=== PATIENT | male | born 1930 | race Caucasian/White ===

== ENCOUNTER 2017-12-10 02:23 | Emergency (ER) | payer MEDICARE, OTHER ==
[~2017-12-10] VITALS: Ht 182.9 cm; Wt 109.1 kg
[2017-12-10] MEDS ORDERED: GABA-531 PO (02:36)
[2017-12-10] MEDS ORDERED: INSLAN SQ (02:36)
[2017-12-10] MEDS ORDERED: OXYC10 PO (02:36)
[2017-12-10] MEDS ORDERED: OXYC-38 PO (02:36)
[2017-12-10] MEDS ORDERED: ATOR20TA86 PO (02:36)
[2017-12-10] MEDS ORDERED: MIRT15 PO (02:36)
[2017-12-10 02:58] LABS: GLUCOSE,POINT OF CARE 297 MG/DL (70-110)
[2017-12-10] MEDS ORDERED: GABAPENTIN 300 MG CAPSULE PO ONE (03:15)
[2017-12-10] MEDS ORDERED: LORazepam 2 MG/ML VIAL IM ONE (03:15)
[2017-12-10 03:26] LABS: BASOPHILS % (AUTO) 0.6 % (0.0-2.0); EOSINOPHILS % (AUTO) 2.9 % (1.0-6.0); HEMATOCRIT 35.6 % (41-53); LYMPHOCYTES # (AUTO) 3.4 K/uL (1.0-4.8); LYMPHOCYTES % (AUTO) 35.6 % (22.0-44.0); MEAN CORPUSCULAR HEMOGLOBIN 31.5 pg (26.0-34.0); MEAN CORPUSCULAR HGB CONC 33.9 G/dL (31.0-37.0); MEAN CORPUSCULAR VOLUME 93 fL (80-100); MONOCYTES # (AUTO) 0.7 K/uL (0.1-1.0); MONOCYTES % (AUTO) 7.6 % (2.0-9.0); NEUTROPHILS # (AUTO) 5.1 K/uL (1.8-7.7); NEUTROPHILS % (AUTO) 53.3 % (40.0-70.0); PLATELET COUNT (AUTO) 317 K/uL (150-450); RED BLOOD CELL COUNT(AUTO) 3.82 MIL/uL (4.50-5.90); RED CELL DISTRIBUTION WIDTH 13.2 % (11.5-14.5)
[2017-12-10 03:36] LABS: CALCIUM, TOTAL 8.6 mg/dL (8.8-10.5); CREATININE 1.22 mg/dL (0.60-1.30); POTASSIUM 4.9 mmol/L (3.5-5.1)
[2017-12-10 03:42] LABS: ALBUMIN 3.7 g/dL (3.4-5.0); BILIRUBIN,TOTAL 0.3 mg/dL (0.1-1.0); TOTAL PROTEIN, SERUM 7.5 g/dL (6.4-8.2)
[2017-12-10 04:10] VITALS: BP 147/91
[2017-12-10 13:04] LABS: GLUCOSE,POINT OF CARE 325 MG/DL (70-110)
[2017-12-10 16:13] LABS: GLUCOSE,POINT OF CARE 353 MG/DL (70-110)
== END 2017-12-10 04:46 | disposition home or self-care (01) ==
LOC: EMS 02:26 → EDSEX 02:26 → EMS 04:46
DX: F41.9 Anxiety disorder, unspecified (principal); G62.9 Polyneuropathy, unspecified; G89.4 Chronic pain syndrome; E11.65 Type 2 diabetes mellitus with hyperglycemia; E78.00 Pure hypercholesterolemia, unspecified; I10 Essential (primary) hypertension; Z88.0 Allergy status to penicillin; Z88.8 Allergy status to other drugs, medicaments and biological substances; Z79.4 Long term (current) use of insulin
CPT/HCPCS: 36415; 80053; 82962; 84484; 85025; 96372; 99284; J2060

== ENCOUNTER 2017-12-10 12:40 | Inpatient (IN) | payer MEDICARE, OTHER ==
[~2017-12-10] VITALS: Ht 182.9 cm; Wt 77.1 kg
[~2017-12-10 12:40] MED LIST: ATOR20TA86 PO; GABA-531 PO; INSLAN SQ; MIRT15 PO; OXYC-38 PO; OXYC10 PO
[2017-12-10 13:51] LABS: BASOPHILS % (AUTO) 0.8 % (0.0-2.0); EOSINOPHILS % (AUTO) 2.1 % (1.0-6.0); HEMATOCRIT 37.1 % (41-53); HEMOGLOBIN 12.7 g/dL (13.5-17.5); LYMPHOCYTES # (AUTO) 1.8 K/uL (1.0-4.8); LYMPHOCYTES % (AUTO) 21.9 % (22.0-44.0); MEAN CORPUSCULAR HEMOGLOBIN 31.9 pg (26.0-34.0); MEAN CORPUSCULAR HGB CONC 34.3 G/dL (31.0-37.0); MEAN CORPUSCULAR VOLUME 93 fL (80-100); MONOCYTES # (AUTO) 0.4 K/uL (0.1-1.0); MONOCYTES % (AUTO) 5.3 % (2.0-9.0); NEUTROPHILS # (AUTO) 5.9 K/uL (1.8-7.7); NEUTROPHILS % (AUTO) 69.9 % (40.0-70.0); PLATELET COUNT (AUTO) 318 K/uL (150-450); RED BLOOD CELL COUNT(AUTO) 3.99 MIL/uL (4.50-5.90); RED CELL DISTRIBUTION WIDTH 13.4 % (11.5-14.5)
[2017-12-10 14:01] LABS: ANION GAP 10 mmol/L (8-16); CALCIUM, TOTAL 8.6 mg/dL (8.8-10.5); CARBON DIOXIDE 28 mmol/L (22-29); CHLORIDE 98 mmol/L (98-107); CREATININE 1.03 mg/dL (0.60-1.30); GLOMERULAR FILTR. RATE CALC > 60 mL/min (>60); GLUCOSE,RANDOM 309 mg/dL (70-110); POTASSIUM 4.4 mmol/L (3.5-5.1); SODIUM SERUM 136 mmol/L (136-145); UREA NITROGEN, BLOOD 25 mg/dL (7-18)
[2017-12-10 14:06] LABS: ALBUMIN 3.7 g/dL (3.4-5.0); ALKALINE PHOSPHATASE 85 U/L (46-116); ASPARTATE AMINOTRANSFERASE 18 U/L (15-37); BILIRUBIN,TOTAL 0.6 mg/dL (0.1-1.0); TOTAL PROTEIN, SERUM 7.6 g/dL (6.4-8.2)
[2017-12-10 14:14] LABS: ALANINE AMINOTRANSFERASE 24 U/L (12-78)
[2017-12-10] MEDS ORDERED: KETOROLAC TROMETHAMINE 30 MG/ML VIAL IVP ONE (15:00)
[2017-12-10] MEDS ORDERED: KETOROLAC TROMETHAMINE 30 MG/ML VIAL IM ONE (15:15)
[2017-12-10 15:56] LABS: APPEARANCE,URINE CLEAR (CLEAR); BILIRUBIN,URINE NEGATIVE (NEGATIVE); GLUCOSE, URINE (UA) >=1000 mg/dL (NEGATIVE); KETONES,URINE 15 mg/dL (NEGATIVE); LEUKOCYTE ESTERASE ,URINE NEGATIVE (NEGATIVE); NITRATE,URINE NEGATIVE (NEGATIVE); OCCULT BLOOD,URINE NEGATIVE (NEGATIVE); PROTEIN,URINE TRACE (NEGATIVE); UROBILINOGEN,URINE 0.2 mg/dL (<=1.0)
[2017-12-10 16:07] LABS: BACTERIA,URINE None Seen /HPF (None Seen); RBC,URINE None Seen /HPF (0-2); SQUAMOUS EPITHELIAL CELL,UR Rare /LPF (None Seen); WBC,URINE None Seen /HPF (0-5)
[2017-12-10] MEDS ORDERED: INSULIN REGULAR, HUMAN 100 UNITS/ML SQ ONE (16:15)
[2017-12-10] MEDS ORDERED: LORazepam 1 MG TABLET PO ONE (16:15)
[2017-12-10 16:40] LABS: AMPHET/METH SCREEN,URINE NEGATIVE (NEGATIVE); BARBITURATE SCREEN, URINE NEGATIVE (NEGATIVE); BENZODIAZEPINES SCREEN,URINE POSITIVE (NEGATIVE); CANNABINOID SCREEN,URINE NEGATIVE (NEGATIVE); COCAINE SCREEN,URINE NEGATIVE (NEGATIVE); METHADONE SCREEN, URINE NEGATIVE (NEGATIVE); OPIATE SCREEN,URINE NEGATIVE (NEGATIVE); PHENCYCLIDINE SCREEN,URINE NEGATIVE (NEGATIVE)
[2017-12-10] MEDS ORDERED: HALOPERIDOL 5 MG TABLET PO PRN (17:00)
[2017-12-10] MEDS: GABAPENTIN 300 MG CAPSULE PO SCH (18:23)
[2017-12-10] MEDS ORDERED: ACETAMINOPHEN 325 MG TABLET PO PRN (19:00)
[2017-12-10] MEDS ORDERED: IBUPROFEN 400 MG TABLET PO PRN (19:00)
[2017-12-10 19:12] VITALS: BP 145/70
[2017-12-10] MEDS ORDERED: DEXTROSE 50%-WATER 25 GM/50 ML SYRINGE IVP PRN (19:15)
[2017-12-10] MEDS: RisperiDONE 2 MG TABLET PO SCH (20:13)
[2017-12-10] MEDS: ATORVASTATIN CALCIUM 20 MG TABLET PO SCH (20:13)
[2017-12-10] MEDS: LORazepam 2 MG TABLET PO PRN (20:17)
[2017-12-10] MEDS: INSULIN LISPRO 100 UNITS/ML SQ PRN (20:17)
[2017-12-10 22:58] VITALS: BP 145/74
[2017-12-11] MEDS: ZOLPIDEM TARTRATE 10 MG TABLET PO PRN (01:13)
[2017-12-11 05:58] LABS: GLUCOMETER DEV NAME(LOC) 3EI B; GLUCOSE,POINT OF CARE 328 MG/DL (70-110)
[2017-12-11] MEDS: INSULIN LISPRO 100 UNITS/ML SQ PRN ×3 (06:49→20:35)
[2017-12-11] MEDS: VENLAFAXINE HCL 75 MG ER CAPSULE PO SCH (08:56)
[2017-12-11] MEDS: GABAPENTIN 300 MG CAPSULE PO SCH ×3 (08:56→17:01)
[2017-12-11] MEDS ORDERED: INSULIN GLARGINE,HUM.REC.ANLOG 100 UNITS/ML SQ SCH (09:00)
[2017-12-11 10:34] VITALS: BP 134/68
[2017-12-11] MEDS ORDERED: LOPERAMIDE HCL 2 MG CAPSULE PO PRN (10:45)
[2017-12-11] MEDS ORDERED: DOCUSATE SODIUM 100 MG CAPSULE PO PRN (10:45)
[2017-12-11] MEDS ORDERED: ONDANSETRON HCL 4 MG TABLET PO PRN (10:45)
[2017-12-11] MEDS ORDERED: IBUPROFEN 400 MG TABLET PO PRN (10:45)
[2017-12-11] MEDS ORDERED: CloNIDine HCL 0.1 MG TABLET PO PRN (10:45)
[2017-12-11] MEDS ORDERED: ALBUTEROL SULFATE HFA 90 MCG/PUFF 8 GM INHALER IH PRN (10:45)
[2017-12-11] MEDS ORDERED: MAGNESIUM HYDROXIDE SUSPENSION 30 ML UDCUP PO PRN (10:45)
[2017-12-11] MEDS ORDERED: MAG HYDROX/AL HYDROX/SIMETH ES 30 ML SUSPENSION UDCUP PO PRN (10:45)
[2017-12-11] MEDS ORDERED: PETROLATUM,WHITE 71 GM JELLY TP PRN (10:45)
[2017-12-11] MEDS ORDERED: ACETAMINOPHEN 325 MG TABLET PO PRN (10:45)
[2017-12-11 16:49] LABS: GLUCOMETER DEV NAME(LOC) 3EX 1; GLUCOSE,POINT OF CARE 337 MG/DL (70-110)
[2017-12-11] MEDS: INSULIN GLARGINE,HUM.REC.ANLOG 100 UNITS/ML SQ SCH (17:06)
[2017-12-11] MEDS: ATORVASTATIN CALCIUM 20 MG TABLET PO SCH (20:22)
[2017-12-11] MEDS: RisperiDONE 2 MG TABLET PO SCH (20:22)
[2017-12-11 20:34] LABS: GLUCOMETER DEV NAME(LOC) 3EX 1; GLUCOSE,POINT OF CARE 373 MG/DL (70-110)
[2017-12-11 21:41] VITALS: BP 121/70
[2017-12-12] MEDS: ZOLPIDEM TARTRATE 10 MG TABLET PO PRN ×2 (00:22→21:54)
[2017-12-12] MEDS: LORazepam 2 MG TABLET PO PRN ×2 (00:22→07:35)
[2017-12-12 05:39] LABS: GLUCOMETER DEV NAME(LOC) 3EI B; GLUCOSE,POINT OF CARE 121 MG/DL (70-110)
[2017-12-12 07:43] LABS: HEMOGLOBIN A1C 9.3 % (4.5-6.2)
[2017-12-12 07:47] LABS: THYROID STIMULATING HORMONE 0.46 uIU/mL (0.36-3.74)
[2017-12-12 07:58] LABS: CHOL/HDL RATIO 3.9 (4.2-7.3)
[2017-12-12 08:30] VITALS: BP 135/79
[2017-12-12] MEDS ORDERED: NICOTINE 14 MG/24 HOUR PATCH TD SCH (09:00)
[2017-12-12] MEDS: GABAPENTIN 300 MG CAPSULE PO SCH ×3 (09:02→16:04)
[2017-12-12] MEDS: VENLAFAXINE HCL 75 MG ER CAPSULE PO SCH (09:03)
[2017-12-12] MEDS: INSULIN GLARGINE,HUM.REC.ANLOG 100 UNITS/ML SQ SCH (09:14)
[2017-12-12] MEDS: INSULIN LISPRO 100 UNITS/ML SQ PRN ×3 (12:21→20:30)
[2017-12-12] MEDS: ATORVASTATIN CALCIUM 20 MG TABLET PO SCH (16:04)
[2017-12-12] MEDS ORDERED: INSULIN GLARGINE,HUM.REC.ANLOG 100 UNITS/ML SQ SCH (17:00)
[2017-12-12 18:08] VITALS: BP 141/72
[2017-12-12] MEDS: RisperiDONE 2 MG TABLET PO SCH (20:08)
[2017-12-13 00:21] VITALS: BP 137/72
[2017-12-13] MEDS: LORazepam 2 MG TABLET PO PRN (01:31)
[2017-12-13 05:44] LABS: GLUCOMETER DEV NAME(LOC) 3EI B; GLUCOSE,POINT OF CARE 313 MG/DL (70-110)
[2017-12-13] MEDS: INSULIN LISPRO 100 UNITS/ML SQ PRN ×2 (07:37→12:22)
[2017-12-13 08:30] VITALS: BP 145/70
[2017-12-13] MEDS ORDERED: INSULIN GLARGINE,HUM.REC.ANLOG 100 UNITS/ML SQ SCH (09:00)
[2017-12-13] MEDS: ATORVASTATIN CALCIUM 20 MG TABLET PO SCH (09:46)
[2017-12-13] MEDS: GABAPENTIN 300 MG CAPSULE PO SCH ×3 (09:47→16:00)
[2017-12-13] MEDS: VENLAFAXINE HCL 75 MG ER CAPSULE PO SCH (09:47)
[2017-12-13 12:09] LABS: GLUCOMETER DEV NAME(LOC) 3EX 1; GLUCOSE,POINT OF CARE 242 MG/DL (70-110)
[2017-12-13] MEDS ORDERED: RISP2 PO ×2 (12:31→12:37)
[2017-12-13] MEDS ORDERED: VENL-67 PO (12:37)
[2017-12-14 10:14] LABS: GLUCOMETER DEV NAME(LOC) 3EX 1; GLUCOSE,POINT OF CARE 365 MG/DL (70-110)
[2017-12-14 10:14] LABS: GLUCOMETER DEV NAME(LOC) 3EX 1; GLUCOSE,POINT OF CARE 305 MG/DL (70-110)
[2017-12-14 10:14] LABS: GLUCOMETER DEV NAME(LOC) 3EX 1; GLUCOSE,POINT OF CARE 272 MG/DL (70-110)
[2017-12-14 10:14] LABS: GLUCOMETER DEV NAME(LOC) 3EX 1; GLUCOSE,POINT OF CARE 281 MG/DL (70-110)
== END 2017-12-13 16:15 | disposition home or self-care (01) | DRG 885 ==
LOC: EMS 13:34 → 3EX 17:47
PROVIDERS: ADMIT Psychiatry & Neurology Psychiatry; ATTEND Psychiatry & Neurology Psychiatry
DX: F33.3 Major depressive disorder, recurrent, severe with psychotic symptoms (principal); D64.9 Anemia, unspecified; E11.40 Type 2 diabetes mellitus with diabetic neuropathy, unspecified; E11.65 Type 2 diabetes mellitus with hyperglycemia; E78.00 Pure hypercholesterolemia, unspecified; G89.29 Other chronic pain; E78.5 Hyperlipidemia, unspecified; I10 Essential (primary) hypertension; H54.61 Unqualified visual loss, right eye, normal vision left eye; Z79.4 Long term (current) use of insulin; Z79.899 Other long term (current) drug therapy; Z88.0 Allergy status to penicillin; Z88.8 Allergy status to other drugs, medicaments and biological substances
CPT/HCPCS: 73502; 83036; 84443; 93005; 96372; 99285; G0480; J1815; J1885